=== PATIENT | female | born 1990 | race American Indian/Alaskan Native ===

== ENCOUNTER 2019-07-17 10:07 | Emergency (ER) | payer MEDICAID ==
[~2019-07-17] VITALS: Ht 154.9 cm; Wt 68.0 kg
[2019-07-17] MEDS ORDERED: AMOXICILLIN/POTASSIUM CLAVULANATE 875/125MG TAB PO ONE (11:45)
[2019-07-17] MEDS ORDERED: ACETAMINOPHEN 500MG TABLET PO ONE (11:45)
[2019-07-17] MEDS ORDERED: TRAMADOL 50MG TABLET PO ONE (11:45)
[2019-07-17 11:57] LABS: CLARITY URINE CLOUDY (CLEAR); COLOR URINE YELLOW (YELLOW); KETONES URINE NEGATIVE (NEGATIVE); LEUKOCYTE ESTERASE URINE 3+ (NEGATIVE); NITRITE URINE NEGATIVE (NEGATIVE); OCCULT BLOOD URINE NEGATIVE (NEGATIVE); PH URINE 5.5 (4.5-8.0); PROTEIN URINE NEGATIVE (NEGATIVE); SPECIFIC GRAVITY URINE 1.019 (1.005-1.030); UROBILINOGEN URINE 0.2 E.U./dL (0.2-1.0)
[2019-07-17 12:02] LABS: CHLORIDE 104 mEq/L (98-107)
[2019-07-17 13:31] VITALS: BP 133/34
== END 2019-07-17 13:33 | disposition home or self-care (01) ==
LOC: ER 10:41
DX: N39.0 Urinary tract infection, site not specified (principal); E11.65 Type 2 diabetes mellitus with hyperglycemia
CPT/HCPCS: 36415; 80048; 81003; 81025; 82962; 87106; 99284

== ENCOUNTER 2020-12-07 10:15 | Emergency (ER) | payer MEDICAID ==
[~2020-12-07] VITALS: Ht 154.9 cm; Wt 74.3 kg
[2020-12-07] MEDS ORDERED: KETOROLAC 60MG/2ML VIAL IM STA (10:44)
[2020-12-07 11:34] LABS: CLARITY URINE CLOUDY (CLEAR); COLOR URINE YELLOW (YELLOW); KETONES URINE NEGATIVE (NEGATIVE); LEUKOCYTE ESTERASE URINE 3+ (NEGATIVE); NITRITE URINE NEGATIVE (NEGATIVE); OCCULT BLOOD URINE NEGATIVE (NEGATIVE); PROTEIN URINE NEGATIVE (NEGATIVE); SPECIFIC GRAVITY URINE 1.014 (1.005-1.030); UROBILINOGEN URINE 0.2 E.U./dL (0.2-1.0)
[2020-12-07] MEDS ORDERED: IBUP-2029 MT (12:15)
[2020-12-07] MEDS ORDERED: AMOX-424 MT (12:15)
[2020-12-07 12:42] VITALS: BP 136/65
== END 2020-12-07 12:46 | disposition home or self-care (01) ==
LOC: ER 10:15
DX: N10 Acute pyelonephritis (principal); E11.9 Type 2 diabetes mellitus without complications; Z98.890 Other specified postprocedural states
CPT/HCPCS: 81003; 81025; 82962; 87086; 96372; 99283; J1885